=== PATIENT | female | born 1990 | race African-American/Black ===

== ENCOUNTER 2019-07-07 16:49 | Emergency (ER) | payer OTHER ==
[~2019-07-07] VITALS: Ht 167.6 cm; Wt 73.0 kg
[2019-07-08] MEDS ORDERED: ONDANSETRON HCL 4MG/2ML INJ IV ONE
[2019-07-08] MEDS ORDERED: MORPHINE SULFATE 4 MG/ML CPJ (NOT FOR IM USE) IV ONE
[2019-07-08] MEDS ORDERED: SODIUM CHLORIDE 0.9% 1,000 ML IV ONE
[2019-07-08 00:09] LABS: BASOPHILS % 0.6 % (0.0-2.0); EOSINOPHILS % 8.3 % (0.0-5.0); HEMATOCRIT. 39.4 % (36.0-48.0); HEMOGLOBIN. 13.4 g/dL (12.0-16.0); LYMPHOCYTES % 23.5 % (20.0-50.0); MEAN CORPUSCULAR HEMOGLOBIN 30.6 pg (28.0-32.0); MEAN CORPUSCULAR VOLUME 89.6 fL (81.0-99.0); MEAN PLATELET VOLUME 8.8 fl (7.4-10.4); MONOCYTES % 8.4 % (2.0-8.0); NEUTROPHILS % 59.2 % (40.0-76.0); PLATELET 168 x1000/uL (130-400); RED BLOOD CELL COUNT 4.39 mill/uL (4.2-5.4); RED CELL DISTRIBUTION WIDTH 15.5 % (11.6-14.6)
[2019-07-08 00:15] LABS: PROTHROMBIN TIME 10.6 sec (9.6-11.0)
[2019-07-08 00:17] LABS: CHLORIDE 106 mEq/L (98-107)
[2019-07-08 00:19] LABS: HCG SCREEN NEGATIVE
[2019-07-08 01:17] VITALS: BP 114/70
== END 2019-07-08 01:57 | disposition home or self-care (01) ==
LOC: ER 17:11
DX: D25.9 Leiomyoma of uterus, unspecified (principal); R10.9 Unspecified abdominal pain; E87.6 Hypokalemia; Z90.49 Acquired absence of other specified parts of digestive tract
CPT/HCPCS: 36415; 80053; 83690; 84703; 85025; 85610; 96374; 96375; 99283; J2270; J2405; J7030